=== PATIENT | male | born 1990 | race Two or more races ===

== ENCOUNTER 2019-01-21 02:12 | Emergency (ER) | payer SELFPAY ==
[~2019-01-21] VITALS: Ht 188 cm; Wt 65.8 kg
[2019-01-21] MEDS ORDERED: Morphine Sulfate 4mg/ml Inj (IV USE ONLY) IVP ONE (02:30)
--- NOTE | 2019-01-21 02:32 | Emergency Room Report ---
History of Present Illness General Chief Complaint: Abdominal Pain Source: Patient Present Illness HPI This is a 28-year-old male with no past medical patient. He presents with chief complaint of acute onset of right flank pain. Onset was about 30-45 minutes ago. Complaining of severe pain sharp pain. Worse with movement. [place] nauseous and force himself the fibula. No diarrhea. Pain is 9 out of 10. Allergies: Coded Allergies: No Known Allergies (Unverified , 01/21/19) Patient History Past Medical History: see triage record, old chart reviewed Past Surgical History: none Pertinent Family History: none Social History: Denies: smoking Immunizations: other Reviewed Nursing Documentation: PMH: Agreed; PSxH: Agreed Nursing Documentation-PMH Past Medical History: No Stated History Review of Systems Eye: Denies: eye pain, blurred vision ENT: Denies: ear pain, nose congestion, throat swelling Respiratory: Denies: cough, shortness of breath Cardiovascular: Denies: chest pain, palpitations Gastrointestinal: Reports: abdominal pain; Denies: diarrhea, nausea, vomiting Musculoskeletal: Denies: back pain, joint pain Skin: Denies: rash Neurological: Denies: headache, numbness Endocrine: Denies: increased thirst, increased urine Hematologic/Lymphatic: Denies: easy bruising All Other Systems: negative except mentioned in HPI Physical Exam Vital Signs Date Time Temp Pulse Resp B/P (MAP) Pulse Ox O2 Delivery O2 Flow Rate FiO2 01/21/19 02:16 98.1 69 16 160/98 100 Room Air vitals with high blood pressure Sp02 EP Interpretation: reviewed, normal General Appearance: well appearing, no apparent distress, alert Head: normocephalic, atraumatic Eyes: bilateral eye PERRL, bilateral eye EOMI ENT: hearing grossly normal, normal pharynx Neck: full range of motion, supple, no meningismus Respiratory: chest non-tender, lungs clear, normal breath sounds Cardiovascular #1: regular rate, rhythm, no murmur Gastrointestinal: normal bowel sounds, no mass, no organomegaly, no bruit, non- distended, tenderness - Right flank Musculoskeletal: back normal, gait/station normal, normal range of motion Psychiatric: mood/affect normal Skin: warm/dry Medical Decision Making Diagnostic Impression: Primary Impression: Renal colic on right side ER Course patient presents with right flank pain and has microscopic hematuria. This consistent with a passed kidney stone. No evidence of sepsis, pneumonia, infection. Patient pain is controlled. We'll discharge home. CT/MRI/US Diagnostic Results CT/MRI/US Diagnostic Results : Imaging Test Ordered: CT abdomen and pelvis Impression Nonobstructing left kidney stone. 3 mm calcified the left bladder base may represent a bladder calculus. Last Vital Signs Date Time Temp Pulse Resp B/P (MAP) Pulse Ox O2 Delivery O2 Flow Rate FiO2 01/21/19 02:16 98.1 69 16 160/98 100 Room Air Status: improved Disposition: HOME, SELF-CARE Condition: Stable Scripts Tramadol Hcl* (ULTRAM*) 50 Mg Tablet 50 MG ORAL Q6H PRN for For Pain, #15 TAB 0 Refills Prov: Bud Núñez MD 01/21/19 Additional Instructions: Follow-up with your doctor in 7 days. Return if symptom worsen. Bud Núñez MD Jan 21, 2019 02:32
[2019-01-21 02:40] VITALS: BP 160/98
--- NOTE | 2019-01-21 02:40 | NUR ---
ER Nurse Note: Pt came from hotel with roommate c/o right lower abdominal pain; 7/10 non radiating, sharp pain. Pt stated this happened 0130. Bowel sounds heard in all quadrants, right lower quadrant firm on palpation, light touch to the RLQ causes pain of pt. ERMD at pt side, will continue to montior.
[2019-01-21 02:52] LABS: BASOPHILS % (AUTO) 2.2 % (0.0-2.0); EOSINOPHILS % (AUTO) 8.5 % (0.0-3.0); HEMATOCRIT 44.3 % (42.0-52.0); HEMOGLOBIN 15.1 G/DL (14.2-18.0); LYMPHOCYTES % (AUTO) 40.2 % (20.0-45.0); MEAN CORPUSCULAR VOLUME 92 FL (80-99); NEUTROPHILS % (AUTO) 41.1 % (45.0-75.0); PLATELET COUNT 273 K/UL (150-450); RED BLOOD COUNT 4.82 M/UL (4.70-6.10); RED CELL DISTRIBUTION WIDTH 11.2 % (11.6-14.8)
[2019-01-21 03:06] LABS: BILIRUBIN, URINE NEGATIVE (NEGATIVE); COLOR,URINE PALE YELLOW; GLUCOSE, URINE (UA) NEGATIVE (NEGATIVE); KETONES,URINE NEGATIVE (NEGATIVE); LEUKOCYTE ESTERASE ,URINE NEGATIVE (NEGATIVE); NITRITE,URINE NEGATIVE (NEGATIVE); PH,URINE 8 (4.5-8.0); PROTEIN,URINE NEGATIVE (NEGATIVE); UROBILINOGEN,URINE NORMAL MG/DL (0.0-1.0)
[2019-01-21 03:08] LABS: APPEARANCE,URINE VERY CLOUDY
--- NOTE | 2019-01-21 03:11 | Diagnostic Imaging Report ---
EXAM: CT Abdomen and Pelvis Without Intravenous Contrast CLINICAL HISTORY: ABD PAIN TECHNIQUE: Axial computed tomography images of the abdomen and pelvis without intravenous contrast. CTDI is 9.82 mGy and DLP is 482 mGy-cm. One or more of the following dose reduction techniques were used: automated exposure control, adjustment of the mA and/or kV according to patient size, use of iterative reconstruction technique. COMPARISON: None FINDINGS: Lung bases: Unremarkable. No mass. No consolidation. ABDOMEN: Liver: Unremarkable. Gallbladder and bile ducts: Contracted gallbladder which limits evaluation. No CT evidence for acute cholecystitis. No ductal dilation. Pancreas: Unremarkable. No ductal dilation. Spleen: Unremarkable. No splenomegaly. Adrenals: Unremarkable. No mass. Kidneys and ureters: No right renal calculus or hydronephrosis. Punctate nonobstructing left renal calculus. No left ureteral calcification or hydronephrosis. Stomach and bowel: Nonspecific bowel gas pattern. No obstruction. No mucosal thickening. PELVIS: Appendix: No CT evidence for appendicitis. Bladder: 3 mm calcification in the left bladder base which may reflect bladder calculus. Reproductive: Unremarkable as visualized. ABDOMEN and PELVIS: Intraperitoneal space: No free fluid or free air Bones/joints: No acute fracture. No dislocation. Soft tissues: Paucity of intra-abdominal fat and absence of IV and oral contrast limit evaluation. Vasculature: Unremarkable. No abdominal aortic aneurysm. Lymph nodes: Unremarkable. No enlarged lymph nodes. IMPRESSION: Nonobstructing left renal calculus. Bladder calcification which may reflect previously passed calculus. No right renal or ureteral calculus. No hydronephrosis. Nonspecific bowel gas pattern.
[2019-01-21 03:14] LABS: ANION GAP 9 mmol/L (5-15); BLOOD UREA NITROGEN 17 mg/dL (7-18); CALCIUM 9.2 MG/DL (8.5-10.1); CARBON DIOXIDE 29 MMOL/L (21-32); CHLORIDE 100 MMOL/L (98-107); CREATININE 1.6 MG/DL (0.55-1.30); POTASSIUM 3.6 MMOL/L (3.5-5.1); SODIUM 137 MMOL/L (136-145)
[2019-01-21 03:19] LABS: ALANINE AMINOTRANSFERASE 17 U/L (12-78); ALBUMIN 4.3 G/DL (3.4-5.0); ALBUMIN/GLOBULIN RATIO 1.4 (1.0-2.7); ALKALINE PHOSPHATASE 72 U/L (46-116); ASPARTATE AMINO TRANSFERASE 19 U/L (15-37); BILIRUBIN,TOTAL 0.4 MG/DL (0.2-1.0)
[2019-01-21] MEDS ORDERED: TRAMADOL HCL50 MG ORAL (03:38)
--- NOTE | 2019-01-21 03:40 | NUR ---
ER Nurse Note: All orders completed per ERMD orders. Awaiting lab and radiology results. Pt resting in bed, no signs of distress. Pt stated pain has decreased and is more tolerable. Pt remains NPO, no n/v/d. Pt tolerated medication well; infusing NS. Bed in lowest postion, will continue to montior.
[2019-01-21 03:55] VITALS: BP 127/68
--- NOTE | 2019-01-21 04:00 | NUR ---
ER Nurse Note: Pt seen, treated, medically cleared for discharge discharge by ERMD. Discharge instructions and prescriptions given with repeat verbalization by pt. Instructed pt to follow up with primary care physian within one week. Pt a&ox4, VSS, no signs of distress. ID band removed. IV removed, site clean and bandaged. Pt left with all belongings, with stable gait; left via own transportation.
== END 2019-01-21 04:00 | disposition home or self-care (01) ==
LOC: EMR 02:39
DX: N20.0 Calculus of kidney (principal)
CPT/HCPCS: 36415; 74176; 80053; 81003; 83690; 85025; 96361; 96374; 96375; 99284; J2270; J2405